=== PATIENT | male | born 1995 | race African-American/Black ===

== ENCOUNTER 2025-03-10 20:22 | Emergency (ER) | payer BC ==
[~2025-03-10] VITALS: Ht 180.3 cm; Wt 91.0 kg
[2025-03-10 20:31] VITALS: TEMP 37.2; O2SAT 96
[2025-03-10] MEDS ORDERED: CEPH500C2 MT (21:30)
[2025-03-10] MEDS ORDERED: SULF1TAB48 MT (21:30)
[2025-03-10] MEDS ORDERED: MUPI15CR11 TP (21:30)
[2025-03-10 21:49] VITALS: BP 119/79; PULSE 78; RESP 16; O2SAT 98
== END 2025-03-10 21:50 | disposition home or self-care (01) ==
LOC: ER 20:22
DX: L03.90 Cellulitis, unspecified (principal)
CPT/HCPCS: 99283